=== PATIENT | male | born 1980 ===

== ENCOUNTER 2019-04-20 05:25 | Emergency (ER) | payer SELFPAY ==
--- NOTE | 2019-04-20 06:04 | EDM.PDOC ---
ED HPI GENERAL MEDICAL PROBLEM - General Chief Complaint: Upper Extremity Injury/Pain Stated Complaint: Pain and burning to hands, intoxicated Time Seen by Provider: 04/20/19 05:47 Source of Information: Reports: Patient History Limitations: Reports: Intoxication - History of Present Illness INITIAL COMMENTS - FREE TEXT/NARRATIVE: Patient presents with complaints of numbness and burning to his hands. He has no other complaints. He is intoxicated. States he has had this for a few days and is worried it is carpal tunnel syndrome. Denies fever, chest pain, SOB, no abdominal pain, blood in urine or stool, no other complaints. Onset: Gradual Duration: Getting Worse Severity: Mild Associated Symptoms: Reports: No Other Symptoms Bilateral hands Pain Score (Numeric/FACES): 10 - Related Data Allergies Allergy/AdvReac Type Severity Reaction Status Date / Time No Known Allergies Allergy Verified 04/20/19 05:39 Home Meds: Home Meds . [No Known Home Meds] 04/20/19 [History] Past Medical History - Past Health History Medical/Surgical History: Denies Medical/Surgical History Review of Systems - Review of Systems Review Of Systems: See Below Constitutional: Reports: No Symptoms Eyes: Reports: No Symptoms Ears: Reports: No Symptoms Nose: Reports: No Symptoms Mouth/Throat: Reports: No Symptoms Respiratory: Reports: No Symptoms Cardiovascular: Reports: No Symptoms GI/Abdominal: Reports: No Symptoms Genitourinary: Reports: No Symptoms Musculoskeletal: Reports: Hand Pain Skin: Reports: No Symptoms Neurological: Reports: Tingling Psychiatric: Reports: No Symptoms ED EXAM, GENERAL - Physical Exam Exam: See Below Exam Limited By: No Limitations General Appearance: Alert, WD/WN, No Apparent Distress Eye Exam: Bilateral Eye: EOMI, Normal Inspection, PERRL Ears: Normal TMs Nose: Normal Inspection, Normal Mucosa, No Blood Throat/Mouth: Normal Inspection, Normal Lips, Normal Teeth, Normal Gums, Normal Oropharynx, Normal Voice, No Airway Compromise Head: Atraumatic, Normocephalic Neck: Normal Inspection, Supple, Non-Tender, Full Range of Motion Respiratory/Chest: No Respiratory Distress, Lungs Clear, Normal Breath Sounds, No Accessory Muscle Use, Chest Non-Tender Cardiovascular: Normal Peripheral Pulses, Regular Rate, Rhythm, No Edema, No Gallop, No JVD, No Murmur, No Rub Peripheral Pulses: 2+: Posterior Tibial (L), Posterior Tibial (R), Dorsalis Pedis (L), Dorsalis Pedis (R) GI/Abdominal: Normal Bowel Sounds, Soft, Non-Tender, No Organomegaly, No Distention, No Abnormal Bruit, No Mass Back Exam: Normal Inspection, Full Range of Motion, NT Extremities: Normal Inspection, Normal Range of Motion, Non-Tender, Normal Capillary Refill, No Pedal Edema Neurological: Alert, Oriented, CN II-XII Intact, Normal Cognition, Normal Gait, Normal Reflexes, Sensory/Motor Deficit (Tinel's sign negative, Phalen's test negative, 2 point discrimination test is positive to bilateral thumb and index finger) Psychiatric: Normal Affect, Normal Mood Skin Exam: Warm, Dry, Intact, Normal Color, No Rash Lymphatic: No Adenopathy Course - Vital Signs Last Recorded V/S: Last Vital Signs Temp 36.0 C 04/20/19 05:25 Pulse 79 04/20/19 05:25 Resp 14 04/20/19 05:25 BP 128/81 04/20/19 05:25 Pulse Ox 95 04/20/19 05:25 - Re-Assessments/Exams Free Text/Narrative Re-Assessment/Exam: 04/20/19 06:12 Tinel and Phalen tests performed and were negative. 2 point discrimination test should inability to distinguish between 1 or 2 points on his bilateral thumb and index fingers. Digits 3-5 had normal discrimination results. Departure - Departure Time of Disposition: 06:04 Disposition: Home, Self-Care 01 Condition: Good Clinical Impression: Carpal tunnel syndrome, bilateral - Discharge Information *PRESCRIPTION DRUG MONITORING PROGRAM REVIEWED*: Not Applicable *COPY OF PRESCRIPTION DRUG MONITORING REPORT IN PATIENT SHIVANI: Not Applicable Instructions: Carpal Tunnel Syndrome, [id number] Additional Instructions: Plan 1. Follow up with your primary care provider 2. You were seen in the ER 04/20/19 at 0530 3. It appears you may have some alteration of nerve function along the median nerve on both hands, however you need additional testing that we don't provide in the emergency room and other conditions should be ruled out first. This is a primary doctor/clinic diagnosis. 4. It would also be helpful for accurate testing to do when you have not been drinking 5. You can call us at any time with any questions or concerns - Problem List & Annotations (1) Carpal tunnel syndrome, bilateral SNOMED Code(s): 60900839 Code(s): G56.03 - CARPAL TUNNEL SYNDROME, BILATERAL UPPER LIMBS Status: Acute Priority: Low - Problem List Review Problem List Initiated/Reviewed/Updated: Yes - Assessment/Plan Assessment:: median nerve impairment Plan: Plan 1. Follow up with your primary care provider 2. You were seen in the ER 04/20/19 at 0530 3. It appears you may have some alteration of nerve function along the median nerve on both hands, however you need additional testing that we don't provide in the emergency room and other conditions should be ruled out first. This is a primary doctor/clinic diagnosis. 4. It would also be helpful for accurate testing to do when you have not been drinking 5. You can call us at any time with any questions or concerns
== END 2019-04-20 06:09 | disposition home or self-care (01) ==
LOC: VM.ED 05:25
DX: G56.03 Carpal tunnel syndrome, bilateral upper limbs (principal)
CPT/HCPCS: 99283; 99283-GF